=== PATIENT | male | born 1995 ===

== ENCOUNTER 2020-03-21 13:23 | Outpatient (CLI) | payer OTHER ==
--- NOTE | 2020-03-21 15:25 | Cat Scan Report ---
CT ORBITS/MAXILLOFACIAL WITHOUT CONTRAST INDICATION / CLINICAL INFORMATION: Exophthalmos. TECHNIQUE: All CT scans at this location are performed using CT dose reduction for ALARA by means of automated e xposure control. COMPARISON: None available. FINDINGS: FACIAL BONES: No fracture or other significant abnormality. PARANASAL SINUSES: No significant abnormality. ORBITS: No significant abnormality. SOFT TISSUES: No significant abnormality. VISUALIZED INTRACRANIAL STRUCTURES: No significant abnormality. ADDITIONAL FINDINGS: None. IMPRESSION: 1. No significant abnormality. Signer Name: Philippe Oneil MD Signed: 03/21/2020 3:21 PM Workstation Name: [id number]
== END 2020-03-21 13:24 | disposition home or self-care (01) ==
LOC: CT 13:23
PROVIDERS: ATTEND Internal Medicine
DX: H05.20 Unspecified exophthalmos (principal)
CPT/HCPCS: 70480